=== PATIENT | male | born 1985 | race African-American/Black ===

== ENCOUNTER 2021-08-15 17:22 | Emergency (ER) | payer SELFPAY ==
[~2021-08-15] VITALS: Ht 172.7 cm; Wt 88.9 kg
--- NOTE | 2021-08-15 17:35 | NUR ---
The patient is bibs for c/o panic attack 15 mins [employer], admits on smoking weed and vodka. The patient is alert and oriented x4. In room air and denies SOB. Respiration regular and unlabored. The patient is attached to the monitor. Will continue to monitor the patient.
[2021-08-15 18:08] VITALS: BP 127/68
--- NOTE | 2021-08-15 18:08 | NUR ---
Patient discharged to home in stable condition. Written and verbal after care instructions given. Patient verbalizes understanding of instruction.
== END 2021-08-15 18:09 | disposition home or self-care (01) ==
LOC: ER 17:37
DX: F12.980 Cannabis use, unspecified with anxiety disorder (principal)